=== PATIENT | female | born 1955 | race Caucasian/White ===

== ENCOUNTER 2022-03-30 22:31 | Emergency (ER) | payer MEDICARE, OTHER ==
[~2022-03-30] VITALS: Ht 172.7 cm; Wt 81.6 kg
--- NOTE | 2022-03-30 22:45 | NUR ---
PATIENT BIBRA 102 C/O CP ON LEFT SIDE STARTED AT 930PM. GIVEN ASA 325 NITRO 0.8 CONDENSER WINDER, STILL 5/10 PAIN NOTED. PATIENT A/O 4 RR EVEN AND UNLABORED NO SOB NOTED. PATIENT TAKEN TO ER BED 09. PATIENT CONNECTED TO CARDIAC AND POX MONITOR.
[2022-03-30] MEDS ORDERED: MORPHINE SULFATE INJ 2 MG/ML DISP.SYRIN ONE (22:46)
--- NOTE | 2022-03-30 22:47 | NUR ---
JOE FREITAS AT BEDSIDE FOR EKG
--- NOTE | 2022-03-30 22:48 | NUR ---
BLOOD COLLECTED AND SENT TO LAB
--- NOTE | 2022-03-30 22:49 | NUR ---
PATIENT REFUSING TO DO A COVID 19 TEST NOTIFIED
--- NOTE | 2022-03-30 22:49 | NUR ---
PT REFUSED MORPHINE, MADE AWARE
[2022-03-30] MEDS ORDERED: MORPHINE SULFATE INJ 2 MG/ML DISP.SYRIN IV ONE (23:00)
--- NOTE | 2022-03-30 23:08 | NUR ---
XRAY AT BEDSIDE
[2022-03-30 23:19] LABS: BASOPHILS % (AUTO) 0.6 % (0.0-2.0); EOSINOPHILS % (AUTO) 1.4 % (0.0-6.0); HEMATOCRIT 39 % (33-45); HEMOGLOBIN 13.2 g/dL (11.5-14.8); LYMPHOCYTES # (AUTO) 3.5 K/uL (0.8-4.8); LYMPHOCYTES % (AUTO) 46.6 % (20.0-44.0); MEAN CORPUSCULAR HGB CONC 34 g/dl (31.0-36.0); MEAN CORPUSCULAR VOLUME 90 fL (82-100); MONOCYTES # (AUTO) 0.7 K/uL (0.1-1.30); MONOCYTES % (AUTO) 8.7 % (2.0-12.0); NEUTROPHILS # (AUTO) 3.2 K/uL (1.8-8.9); NEUTROPHILS % (AUTO) 42.7 % (43.0-81.0); PLATELET COUNT (AUTO) 200 K/uL (150-450); RED BLOOD CELL COUNT(AUTO) 4.32 MIL/uL (4.0-5.2); WHITE BLOOD COUNT (AUTO) 7.6 K/uL (4.3-11.0)
[2022-03-30 23:31] LABS: ALANINE AMINOTRANSFERASE 15 U/L (12-78); ALBUMIN 3.4 g/dL (3.4-5.0); ALKALINE PHOSPHATASE 69 U/L (46-116); ASPARTATE AMINOTRANSFERASE 12 U/L (15-37); BILIRUBIN,DIRECT 0.1 mg/dL (0.0-0.2); BILIRUBIN,TOTAL 0.3 mg/dL (0.2-1.0); CALCIUM, SERUM 9.1 mg/dL (8.5-10.1); CARBON DIOXIDE 31 mmol/L (21-32); CHLORIDE 104 mmol/L (98-107); CREATININE 0.7 mg/dL (0.6-1.3); GLUCOSE 114 mg/dL (74-106); POTASSIUM 3.5 mmol/L (3.5-5.1); SODIUM SERUM 139 mmol/L (136-145); TOTAL PROTEIN, SERUM 6.9 g/dL (6.4-8.2); UREA NITROGEN, BLOOD 23 mg/dL (7-18)
--- NOTE | 2022-03-31 00:04 | NUR ---
Patient does not wish to proceed with medical care recommended by Dr. Vance. Patient given information related to possible complications, up to and including , which could occur as a result of leaving the hospital at this time. Patient verbalizes understanding of risks involved due to leaving against medical advice. Patient has signed AMA form.
[2022-03-31 00:05] VITALS: BP 112/72
== END 2022-03-31 00:09 | disposition left against medical advice (07) ==
LOC: ER 22:36
DX: R07.89 Other chest pain (principal); I10 Essential (primary) hypertension
CPT/HCPCS: 36415; 71045-TC; 80048-TC; 80076-TC; 84484-TC; 85025-TC; 85730-TC; J2270

== ENCOUNTER 2022-07-10 17:03 | Emergency (ER) | payer MEDICARE, OTHER ==
[~2022-07-10] VITALS: Ht 170.2 cm; Wt 74.8 kg
[2022-07-10 17:11] VITALS: BP 124/60
--- NOTE | 2022-07-10 17:15 | NUR ---
BIBRA 860 FROM HOME W/ C/O HEADACHE X3 DAYS. PT WAS AT [facility] LAST NIGHT FOR COVID TESTING BUT WALKED OUT. PT AMBULATORY. TO ER BED 15.
--- NOTE | 2022-07-10 18:12 | NUR ---
FAXED DISCLOSURE OF HEALTH INFORMATION TO [facility]. AWAITING TO RECEIVE CHEST X-RAY RESULT AND COVID RESULT FROM PREVIOUS VISIT
[2022-07-10] MEDS ORDERED: AZIT250T PO (20:02)
--- NOTE | 2022-07-10 20:09 | NUR ---
Patient discharged to home in stable condition. Written and verbal after care instructions given. Patient verbalizes understanding of instruction. PT ambulatory with a steady gait
== END 2022-07-10 20:07 | disposition home or self-care (01) ==
LOC: ER 17:05
DX: J20.9 Acute bronchitis, unspecified (principal); I10 Essential (primary) hypertension

== ENCOUNTER 2022-07-23 09:36 | Emergency (ER) | payer MEDICARE, OTHER ==
[~2022-07-23 09:36] MED LIST: AZIT250T PO
--- NOTE | 2022-07-23 09:52 | NUR ---
CALLED FOR TRIAGE, NO RESPONSE
--- NOTE | 2022-07-23 10:02 | NUR ---
CALLED FOR TRIAGE, NO RESPONSE
--- NOTE | 2022-07-23 10:10 | NUR ---
CALLED FOR TRIAGE, NO RESPONSE
== END 2022-07-23 10:11 | disposition left against medical advice (07) ==
LOC: ER 09:51
DX: Z53.21 Procedure and treatment not carried out due to patient leaving prior to being seen by health care provider (principal); R21 Rash and other nonspecific skin eruption